=== PATIENT | female | born 1975 | race Two or more races ===

== ENCOUNTER 2022-03-16 22:47 | Emergency (ER) | payer SELFPAY ==
[~2022-03-16] VITALS: Ht 157.5 cm; Wt 73.0 kg
[2022-03-16] MEDS ORDERED: SODIUM CHLORIDE 0.9% 1,000 ML IV ONE (23:00)
[2022-03-16 23:09] LABS: BASOPHILS % 0.6 % (0.0-2.0); EOSINOPHILS % 0.9 % (0.0-5.0); HEMATOCRIT. 39.1 % (36.0-48.0); HEMOGLOBIN. 13.2 g/dL (12.0-16.0); LYMPHOCYTES % 39.8 % (20.0-50.0); MEAN CORPUSCULAR VOLUME 91.9 fL (81.0-99.0); MEAN PLATELET VOLUME 8.2 fl (7.4-10.4); NEUTROPHILS % 50.7 % (40.0-76.0); PLATELET 369 x1000/uL (130-400); RED BLOOD CELL COUNT 4.25 mill/uL (4.2-5.4)
[2022-03-16 23:20] LABS: HCG SCREEN NEGATIVE
[2022-03-16 23:23] LABS: CHLORIDE 109 mEq/L (98-107)
[2022-03-17 01:05] VITALS: BP 151/96
== END 2022-03-17 01:23 | disposition home or self-care (01) ==
LOC: ER 22:57
DX: I47.1 Supraventricular tachycardia (principal); I10 Essential (primary) hypertension
CPT/HCPCS: 36415; 71045; 80053; 83880; 84484; 84703; 85025; 93005; 99285; J7030